=== PATIENT | male | born 1975 | race Caucasian/White ===

== ENCOUNTER 2023-05-29 12:36 | Inpatient (IN) | payer OTHER ==
[2023-05-29 15:01] LABS: BASO % 0.3 % (0-2.0); EOS % 0.4 % (0-4.5); HEMATOCRIT 40.6 % (35.4-49); LYMPH % 18.5 % (8-40); MCH 29.8 pg (25.7-33.7); MCHC 34.4 g/dl (32.0-35.9); MEAN CELL VOLUME 86.5 fl (80-96); MEAN PLT VOLUME 7.6 fl (7.5-11.1); MONO % 9.3 % (3.8-10.2); NEUT % 71.5 % (42.8-82.8); PLATELET COUNT 285 10^3/uL (134-434); RBC 4.69 M/mm3 (4.00-5.60); RDW 13.6 % (11.9-15.9); WHITE BLOOD COUNT 6.5 K/mm3 (4.0-10.0)
[2023-05-29 15:10] LABS: INR 1.3 (0.83-1.09)
[2023-05-29] MEDS ORDERED: ACETAMINOPHEN INJECTION 100 ML IVPB ONE (15:11)
[2023-05-29 15:12] LABS: ACTIVATED PTT 32.5 SECONDS (25.2-36.5); POTASSIUM 3.9 mmol/L (3.5-5.1)
[2023-05-29 15:14] LABS: CALCIUM 9.8 mg/dL (8.5-10.1)
[2023-05-29 15:15] LABS: ALBUMIN 3.6 g/dl (3.4-5.0); BLOOD UREA NITROGEN 10.6 mg/dL (7-18)
[2023-05-29 15:18] LABS: CREATININE 0.8 mg/dL (0.55-1.3)
[2023-05-29 15:20] LABS: BILIRUBIN,TOTAL 0.4 mg/dL (0.2-1); TOT PROT 8.9 g/dl (6.4-8.2)
[2023-05-29 15:38] LABS: ERYTHROCYTE SEDIMENTATION RATE 53 mm/hr (0-10)
[2023-05-29] MEDS: ACETAMINOPHEN 1000 MG/100 ML BAG IVPB ONE (15:51)
[2023-05-29] MEDS ORDERED: ceFAZolin SODIUM 1 GM VIAL ONE (16:21)
[2023-05-29] MEDS: CEFAZOLIN 1 GM in DEXTROSE 5%-WATER - 50 ML IVPB ONE (16:41)
[2023-05-29] MEDS ORDERED: VANCOMYCIN 1 GRAM (PRE-DOCKED) 1,000 MG/250 ML BAG IVPB ONE (17:25)
[2023-05-29] MEDS: VANCOMYCIN 1,000 MG in DEXTROSE 5%-WATER - 250 ML IVPB ONE (17:30)
[2023-05-30 00:24] VITALS: BMI 45.6
[2023-05-30 09:13] LABS: BASO % 0.4 % (0-2.0); EOS % 2.6 % (0-4.5); HEMATOCRIT 41.6 % (35.4-49); HEMOGLOBIN 14.1 GM/dL (11.7-16.9); LYMPH % 30.3 % (8-40); MCH 29.8 pg (25.7-33.7); MCHC 33.9 g/dl (32.0-35.9); MEAN CELL VOLUME 87.8 fl (80-96); MEAN PLT VOLUME 7.5 fl (7.5-11.1); MONO % 10.6 % (3.8-10.2); NEUT % 56.1 % (42.8-82.8); PLATELET COUNT 261 10^3/uL (134-434); RBC 4.73 M/mm3 (4.00-5.60); WHITE BLOOD COUNT 5.2 K/mm3 (4.0-10.0)
[2023-05-30 09:48] LABS: ALBUMIN 3.5 g/dl (3.4-5.0)
[2023-05-30 09:49] LABS: CREATININE 0.9 mg/dL (0.55-1.3)
[2023-05-30 09:51] LABS: BILIRUBIN,TOTAL 0.4 mg/dL (0.2-1)
[2023-05-30 09:56] LABS: CALCIUM 9.2 mg/dL (8.5-10.1)
[2023-05-30 09:57] LABS: BLOOD UREA NITROGEN 13.1 mg/dL (7-18); MAGNESIUM 2.2 mg/dL (1.8-2.4)
[2023-05-30 10:00] LABS: TOT PROT 8.8 g/dl (6.4-8.2)
[2023-05-30] MEDS: CEFTRIAXONE 1 GM in DEXTROSE 5%-WATER - 50 ML IVPB SCH (15:26)
[2023-05-30] MEDS: VANCOMYCIN/WATER FOR INJ (PEG) 1,000 MG/200 ML BAG IVPB SCH (16:00)
[2023-05-30] MEDS: VALPROATE SODIUM 250 MG/5 ML UNIT DOSE CUP PO SCH (21:52)
[2023-05-30] MEDS: GABAPENTIN 400 MG CAPSULE PO SCH (21:52)
[2023-05-30] MEDS: MIRTAZAPINE 30 MG TABLET PO SCH (21:53)
[2023-05-31] MEDS ORDERED: CEFTRIAXONE 1 GM in DEXTROSE 5%-WATER - 50 ML IVPB SCH (10:00)
[2023-05-31] MEDS: DULoxetine HCL 30 MG CAPSULE.DR PO SCH (10:20)
[2023-06-01] MEDS: AMOX TR/POT CLAV 875MG/125MG TABLETS (FP) PO SCH (08:31)
[2023-06-01 14:10] VITALS: BP 140/75; PULSE 51; RESP 19; TEMP 98.6
== END 2023-06-01 17:06 | DRG 383 ==
LOC: JER 12:36 → JERBED 15:55 → OBSVTOIN 17:37 → J5S 23:43
PROVIDERS: ADMIT Internal Medicine; ATTEND Internal Medicine
DX: L03.115 Cellulitis of right lower limb (principal); M79.661 Pain in right lower leg; I10 Essential (primary) hypertension; L29.9 Pruritus, unspecified; F32.A Depression, unspecified; Z89.212 Acquired absence of left upper limb below elbow; Z89.211 Acquired absence of right upper limb below elbow; Z89.511 Acquired absence of right leg below knee; Z89.512 Acquired absence of left leg below knee
CPT/HCPCS: 36415; 73552-TC-RT-FY; 73700-TC-RT; 73718-TC-LT; 80053; 83036; 83605; 83735; 85025; 85610; 85651; 85730; 86140; 86850; 86900; 86901; 87040; 87081; 87635; 99285-25; G0378; J0131